=== PATIENT | male | born 1970 | race Caucasian/White ===

== ENCOUNTER 2021-04-14 13:21 | Emergency (ER) | payer OTHER ==
[2021-04-14 14:42] LABS: INFLUENZA A NAA NEGATIVE (NEGATIVE)
[2021-04-14 14:43] LABS: BASOPHIL 0.6 % (0-2); HCT 39.7 % (42.0-52.0); HGB 13.7 g/dl (13.2-18.0); LYMPHOCYTE 17.3 % (15-48); MCH 28.8 pg (25.0-31.0); MCHC 34.5 g/dL (32.0-36.0); MCV 83.6 fL (78.0-100.0); MONOCYTE 5.1 % (0-12); MPV 10.7 fL (6.0-9.5); NRBC 0; PLT 237 K/uL (150-400); RBC 4.75 M/uL (4.70-6.00); WBC 8.7 K/uL (4.0-10.5)
[2021-04-14 14:45] LABS: CORONAVIRUS 2019 SARS-COV-2 POSITIVE (NEGATIVE)
[2021-04-14 15:06] LABS: BUN/CREAT RATIO (CALC) 19.7 RATIO; CREATININE 0.66 mg/dL (0.67-1.17); POTASSIUM 3.8 mmol/L (3.5-5.1)
== END 2021-04-14 16:08 | disposition home or self-care (01) ==
LOC: FER 13:21
PROVIDERS: Nurse Practitioner Family
DX: U07.1 COVID-19 (principal); R07.89 Other chest pain; F17.210 Nicotine dependence, cigarettes, uncomplicated; Z88.5 Allergy status to narcotic agent; Z91.018 Allergy to other foods
CPT/HCPCS: 36415; 71045; 80048; 84484; 85025; 93005; U0002